=== PATIENT | female | born 1945 | race Caucasian/White ===

== ENCOUNTER 2022-05-03 18:42 | Emergency (ER) | payer OTHER ==
[~2022-05-03] VITALS: Ht 160 cm; Wt 102.7 kg
[2022-05-03] MEDS ORDERED: TRAZODONE HCL50 MG PO (19:19)
[2022-05-03] MEDS ORDERED: LIPITOR20 MG PO (19:19)
[2022-05-03] MEDS ORDERED: LASIX20 MG PO (19:20)
[2022-05-03] MEDS ORDERED: VERAPAMIL ER180 MG PO (19:20)
[2022-05-03] MEDS ORDERED: ATENOLOL50 MG PO (19:21)
[2022-05-03] MEDS ORDERED: NEURONTIN300 MG PO (19:22)
[2022-05-03] MEDS ORDERED: ADULT LOW DOSE81 MG PO (19:22)
== END 2022-05-03 20:45 | disposition home or self-care (01) ==
LOC: ED 18:42
DX: R51.9 Headache, unspecified (principal); Z79.899 Other long term (current) drug therapy; Z79.82 Long term (current) use of aspirin
CPT/HCPCS: 36415; 70450; 80053; 85025; 85610; 99284-25